=== PATIENT | female | born 1985 | race Two or more races ===

== ENCOUNTER 2017-01-10 13:10 | Inpatient (IN) | payer BC, MEDICAID ==
[~2017-01-10] VITALS: Ht 157.5 cm; Wt 97.5 kg
[2017-01-10] VITALS (8 sets, daily range): BP systolic 110–121; BP diastolic 57–74
[2017-01-10] MEDS ORDERED: LACT. RINGERS/OXYTOCIN 20UNITS 1,000 ML IV SCH ×2 (13:25→16:02)
[2017-01-10] MEDS ORDERED: PENICILLIN G POT 5MIL/D5 50ML 50 ML IV ONE (13:30)
[2017-01-10] MEDS ORDERED: WITCH HAZEL-GLYCERIN PAD TOP PRN (13:30)
[2017-01-10] MEDS ORDERED: DERMOPLAST 60ML BOTTLE TOP PRN (13:30)
[2017-01-10] MEDS ORDERED: LIDOCAINE 2%HCL (LOCAL ANESTH.) INJ 20ML MDV IJ ONE (13:30)
[2017-01-10] MEDS ORDERED: PHISODERM TOP SOLN 240ML BTL TOP PRN (13:30)
[2017-01-10] MEDS ORDERED: PROMETHAZINE HCL 25 MG/ML 1ML IV PRN (13:30)
[2017-01-10] MEDS ORDERED: CARBOPROST TROMETHAMINE 250 MCG/1ML VIAL IM PRN (13:30)
[2017-01-10] MEDS ORDERED: NALBUPHINE HCL 10 MG/1ml INJECTION IV PRN (13:30)
[2017-01-10] MEDS ORDERED: METHYLERGONOVINE MALEATE 0.2 MG/ML AMP IM PRN (13:30)
[2017-01-10 14:04] LABS: Basophils # (auto) 0 uL; Basophils % (auto) 0.1 % (0.0-2.0); DEFINITIVE VIEW TRANSMISSION; Eosinophils # (auto) 0 uL; Eosinophils % (auto) 0.2 % (0.0-7.0); Hematocrit 38.4 % (36.0-46.0); Hemoglobin 11.9 g/dL (12.2-16.2); Lymphocytes % (auto) 12.2 % (10.0-50.0); Mean Corpuscular Hgb Conc. 31.1 g/dL (32.0-36.0); Mean Corpuscular Volume 80.7 fL (80.0-100.0); Mean Platelet Volume 8.7 fL (7.4-10.4); Monocytes # (auto) 0.8 uL; Neutrophils # (auto) 13.7 uL; Neutrophils % (auto) 82.5 % (37.0-80.0); Platelet Count (auto) 391 10^3/uL (140-450); Red Cell Distribution Width 15.3 % (11.6-16.0); White Blood Cell 16.6 10^3/uL (4.4-10.8)
[2017-01-10 14:18] LABS: INR 0.92 (0.9-1.15); Partial Thromboplastin Time 27.7 sec (22.64-33.71); Prothrombin Time 9.5 sec (9.37-12.3)
[2017-01-10 14:23] LABS: Urine Bilirubin Negative (Negative); Urine Blood Negative /uL (Negative); Urine Color Yellow (Yellow); Urine Glucose Normal (Normal); Urine Ketone Negative (Negative); Urine Mucus FEW (None Seen); Urine Nitrite Negative (Negative); Urine RBC 1 /hpf (0 - 4); Urine Squamous Epithelial Cell MOD /hpf (<5); Urine Urobilinogen Normal (Negative); Urine pH 7.5 (5.0-8.0)
[2017-01-10 14:28] LABS: Albumin 2.8 g/dL (3.4-5.0); BUN/Creatinine Ratio 17.4; Bilirubin, Total 0.3 mg/dL (0.2-1.0); Calcium 8.9 mg/dL (8.5-10.1); Potassium 3.5 mmol/L (3.5-5.1); Total Protein 7.8 g/dL (6.4-8.2)
[2017-01-10] MEDS ORDERED: ACETAMINOPHEN 325 MG TAB PO PRN (15:15)
[2017-01-10] MEDS ORDERED: METHYLERGONOVINE MALEATE 0.2 MG/ML AMP IM ONE (15:15)
[2017-01-10] MEDS ORDERED: ONDANSETRON HCL 4 MG/2 ML VIAL IV PRN (15:15)
[2017-01-10] MEDS: IBUPROFEN 600 MG TAB PO PRN ×2 (16:59→23:51)
[2017-01-10] MEDS ORDERED: PREN-129 OR (17:26)
[2017-01-10] MEDS ORDERED: THYR30TA PO (17:30)
[2017-01-11 03:32] VITALS: BP 111/56
[2017-01-11 07:31] VITALS: BP 109/63
[2017-01-11] MEDS ORDERED: DOCUSATE CALCIUM 240 MG CAP PO SCH (10:00)
[2017-01-11 11:59] VITALS: BP 108/59
[2017-01-11 16:30] VITALS: BP 106/64
[2017-01-11 19:00] VITALS: BP 114/60
[2017-01-11 22:46] VITALS: BP 106/54
[2017-01-12 03:30] VITALS: BP 95/57
[2017-01-12] MEDS: IBUPROFEN 600 MG TAB PO PRN (05:54)
[2017-01-12 08:05] VITALS: BP 106/65
[2017-01-12] MEDS ORDERED: INFLUENZA QUAD 2016-2017 0.5 ML SYRG IM ONE (08:45)
[2017-01-12] MEDS ORDERED: TETANUS-DIPTH-ACEL PERTUSSIS 0.5ML SYRG IM ONE (08:45)
== END 2017-01-12 11:00 | disposition home or self-care (01) | DRG 775 ==
LOC: LDRP 13:10 → OBSVTOIN 13:10 → LDRP 01-11 09:36
PROVIDERS: ADMIT Obstetrics & Gynecology; ATTEND Obstetrics & Gynecology
PROC: 10E0XZZ Delivery of Products of Conception, External Approach (ICD-10-PCS; principal; 2017-01-10)
DX: O62.3 Precipitate labor (principal); Z37.0 Single live birth; Z3A.39 39 weeks gestation of pregnancy
CPT/HCPCS: 36415; 59025; 59409; 76815; 80053; 81001; 85025; 85610; 85730; 86592; 86703; 86762; 86850; 86900; 86901; 87340; 88307; 90715; 96365; 96366; 96372; G0378; G0434; J2540; J2590